=== PATIENT | male | born 1970 | race Caucasian/White ===

== ENCOUNTER 2018-02-10 02:01 | Emergency (ER) | payer BC | END 2018-02-10 03:19 | disposition home or self-care (01) | LOC: MADERS 02:01 → EDBD 02:01 → MADERS 03:19 | DX: I10 Essential (primary) hypertension (principal); M79.1 Myalgia; E78.5 Hyperlipidemia, unspecified; Z79.899 Other long term (current) drug therapy | CPT/HCPCS: 99283 ==

== ENCOUNTER 2019-04-09 19:11 | Emergency (ER) | payer BC ==
[2019-04-09 20:02] LABS: #Basophils 0.2 thou/uL (0.0-0.2); #Eosinphils 0.3 thou/uL (0.0-0.7); #Lymphocytes 2.9 thou/uL (1.20-3.40); #Monocytes 0.9 thou/uL (0.11-0.59); #Neutrophils 5.7 thou/uL (1.40-6.50); %Basophils 1.7 % (0.0-1.0); %Eosinophils 2.6 % (0.0-10.0); %Lymphocytes 29.3 % (21.0-51.0); %Monocytes 9.4 % (0.0-10.0); %Neutrophils 56.9 % (42.0-75.0); Hemoglobin 16.4 g/dL (14.0-18.0); Mean Corpuscular HGB CONC 34.9 g/dL (32.0-36.0); Mean Corpuscular Hemoglobin 29.3 pg (27.0-31.0); Mean Corpuscular Volume 84.1 fL (78.0-98.0); Mean Platelet Volume 6.9 fL (7.4-10.4); Platelet Count 246 thou/uL (130-400); Red Blood Cell (RBC) Count 5.57 mill/uL (4.70-6.10)
[2019-04-09 20:19] LABS: ALT (SGPT) 38 U/L (8-55); AST (SGOT) 23 U/L (5-34); Albumin 4.5 g/dL (3.5-5.0); Alkaline Phosphatase 70 U/L (40-150); Anion Gap 17 mmol/L (10-20); BUN (Urea Nitrogen) 13 mg/dL (8.9-20.6); Bilirubin, Total 0.4 mg/dL (0.2-1.2); Calc. Creatinine Clearance 0 mL/min (70-130); Calcium 9.8 mg/dL (7.8-10.44); Carbon Dioxide 25 mmol/L (22-29); Chloride 100 mmol/L (98-107); Estimated GFR-MDRD 62; Globulin 3.6 g/dL (2.4-3.5); Glucose 132 mg/dL (70-105); Protein, Total 8.1 g/dL (6.0-8.3); Sodium 138 mmol/L (136-145)
--- NOTE | 2019-04-09 20:33 | RAD ---
PORTABLE CHEST 1 VIEW: Date: 04/09/19 Time: 0820 hours HISTORY: Dizziness. Nausea. Shortness of breath. FINDINGS: The heart size is normal. No lobar consolidation, pneumothoraces, or pleural effusions are seen. IMPRESSION: No acute process. POS: [facility]
--- NOTE | 2019-04-09 20:33 | CT ---
CT BRAIN WITHOUT CONTRAST: Date: 04/09/19 HISTORY: Dizziness. Nausea. FINDINGS: There are no previous exams for comparison. No evidence of acute infarct, hemorrhage, midline shift, or abnormal extra-axial fluid collections ar e seen. The ventricular size is normal and the basilar cisterns are patent. The bony calvarium is int act. The visualized paranasal sinuses and mastoid air cells are well aerated. IMPRESSION: No CT evidence of acute intracranial process. POS: [facility]
== END 2019-04-09 21:13 | disposition home or self-care (01) ==
LOC: MADERS 19:11
DX: R42 Dizziness and giddiness (principal); I10 Essential (primary) hypertension; E78.5 Hyperlipidemia, unspecified; F17.220 Nicotine dependence, chewing tobacco, uncomplicated; Z79.82 Long term (current) use of aspirin; Z79.899 Other long term (current) drug therapy
CPT/HCPCS: 36415; 70450; 71045; 80053; 83880; 84484; 85025; 93005

== ENCOUNTER 2019-08-08 08:38 | Emergency (ER) | payer BC ==
[2019-08-08] MEDS ORDERED: diphenhydrAMINE 25 MG CAP ONE (09:47)
[2019-08-08] MEDS ORDERED: predniSONE 10 MG TAB ONE ×2 (09:47)
== END 2019-08-08 09:56 | disposition home or self-care (01) ==
LOC: MADERS 08:38
DX: L27.0 Generalized skin eruption due to drugs and medicaments taken internally (principal); T50.905A Adverse effect of unspecified drugs, medicaments and biological substances, initial encounter; E11.9 Type 2 diabetes mellitus without complications; I10 Essential (primary) hypertension; E78.5 Hyperlipidemia, unspecified; F17.220 Nicotine dependence, chewing tobacco, uncomplicated; Z79.82 Long term (current) use of aspirin; Z79.899 Other long term (current) drug therapy
CPT/HCPCS: 99282; J7512; Q0163

== ENCOUNTER 2020-02-16 15:51 | Emergency (ER) | payer BC ==
[2020-02-16] MEDS ORDERED: Sodium Chloride 0.9% 1,000 ML ONE (16:07)
[2020-02-16 16:38] LABS: Bilirubin Negative (Negative); Blood, Urine Negative (Negative); Clarity Clear (Clear); Glucose, Urine (Dipstick) Negative (Negative); Ketone, Urine Negative (Negative); Leukocyte Negative (Negative); Nitrite Negative (Negative); Protein, Urine (Dipstick) Negative (Neg-Trace); Specific Gravity, Urine 1.015 (1.005-1.030); Urobilinogen 0.2 mg/dL (Less than 2)
[2020-02-16 16:42] LABS: #Basophils 0.1 thou/uL (0.0-0.2); #Eosinphils 0.2 thou/uL (0.0-0.7); #Monocytes 1.1 thou/uL (0.11-0.59); #Neutrophils 8.1 thou/uL (1.40-6.50); %Basophils 1.2 % (0.0-1.0); %Eosinophils 1.4 % (0.0-10.0); %Lymphocytes 17.4 % (21.0-51.0); %Monocytes 9.3 % (0.0-10.0); %Neutrophils 70.6 % (42.0-75.0); Mean Corpuscular HGB CONC 31.5 g/dL (32.0-36.0); Mean Corpuscular Hemoglobin 27.1 pg (27.0-31.0); Mean Corpuscular Volume 86.2 fL (78.0-98.0); Mean Platelet Volume 7.5 fL (7.4-10.4); Platelet Count 302 thou/uL (130-400); RBC Distribution Width 11.9 % (11.5-14.5); Red Blood Cell (RBC) Count 5.91 mill/uL (4.70-6.10); White Blood Cell (WBC) Count 11.5 thou/uL (4.8-10.8)
[2020-02-16 16:56] LABS: ALT (SGPT) 24 U/L (8-55); AST (SGOT) 18 U/L (5-34); Albumin 4.3 g/dL (3.5-5.0); Alkaline Phosphatase 75 U/L (40-110); Anion Gap 14 mmol/L (10-20); BUN (Urea Nitrogen) 15 mg/dL (8.9-20.6); Bilirubin, Total 0.4 mg/dL (0.2-1.2); CK (CPK) 52 U/L (30-200); Calc. Creatinine Clearance 0 mL/min (70-130); Carbon Dioxide 23 mmol/L (22-29); Chloride 106 mmol/L (98-107); Estimated GFR-MDRD 72; Globulin 3.2 g/dL (2.4-3.5); Glucose 93 mg/dL (70-105); Protein, Total 7.5 g/dL (6.0-8.3); Sodium 139 mmol/L (136-145)
[2020-02-16] MEDS ORDERED: Ondansetron PF 4 MG/2 ML Vial ONE (17:19)
== END 2020-02-16 18:07 | disposition home or self-care (01) ==
LOC: MADERS 15:51
DX: R42 Dizziness and giddiness (principal); R11.0 Nausea; E78.5 Hyperlipidemia, unspecified; I10 Essential (primary) hypertension; F32.9 Major depressive disorder, single episode, unspecified; F17.220 Nicotine dependence, chewing tobacco, uncomplicated; Z79.82 Long term (current) use of aspirin; Z79.899 Other long term (current) drug therapy
CPT/HCPCS: 36415; 80053; 81003; 82550; 84484; 85025; 85379; 93005; 94760; 96361; 96374; J2405; J7050

== ENCOUNTER 2020-03-01 12:49 | Emergency (ER) | payer BC | END 2020-03-01 14:04 | disposition home or self-care (01) | LOC: MADERS 12:49 | DX: F41.0 Panic disorder [episodic paroxysmal anxiety] (principal); I10 Essential (primary) hypertension; R73.03 Prediabetes; F41.9 Anxiety disorder, unspecified; F32.9 Major depressive disorder, single episode, unspecified; F17.220 Nicotine dependence, chewing tobacco, uncomplicated; Z79.82 Long term (current) use of aspirin; Z79.899 Other long term (current) drug therapy | CPT/HCPCS: 99283 ==

== ENCOUNTER 2020-07-18 18:35 | Emergency (ER) | payer BC ==
[2020-07-19 19:59] LABS: SARS-CoV-2 MS2 Negative; SARS-CoV-2 N Gene Positive; SARS-CoV-2 S Gene Positive; SARS-CoV-2 by NAA DETECTED (NotDetected); SARS-CoV-2 orf1ab Positive
== END 2020-07-18 19:37 | disposition home or self-care (01) ==
LOC: MADERS 18:35
DX: U07.1 COVID-19 (principal); I10 Essential (primary) hypertension; R73.03 Prediabetes; E78.5 Hyperlipidemia, unspecified; Z71.6 Tobacco abuse counseling; Z79.82 Long term (current) use of aspirin; Z79.899 Other long term (current) drug therapy
CPT/HCPCS: 87635; 99406; U0003

== ENCOUNTER 2023-06-15 20:57 | Emergency (ER) | payer BC ==
[2023-06-15] MEDS ORDERED: Bisacodyl 10 MG SUPP ONE (21:27)
== END 2023-06-15 22:40 | disposition home or self-care (01) ==
LOC: MADERS 20:57
DX: K59.00 Constipation, unspecified (principal); I10 Essential (primary) hypertension; F17.220 Nicotine dependence, chewing tobacco, uncomplicated; Z79.82 Long term (current) use of aspirin; Z79.899 Other long term (current) drug therapy
CPT/HCPCS: 99283

== ENCOUNTER 2023-09-01 07:47 | Emergency (ER) | payer BC ==
[2023-09-01] MEDS ORDERED: Mag-Al Plus 1200/1200/120 MG (30 mL) UDCUP ONE (08:29)
[2023-09-01] MEDS ORDERED: Lidocaine 2% Viscous 100 ML BOTTLE ONE (08:30)
[2023-09-01] MEDS ORDERED: Sodium Chloride 0.9% 1,000 ML ONE (08:30)
[2023-09-01 08:32] LABS: Bilirubin Negative (Negative); Blood, Urine Trace (Negative); Clarity Clear (Clear); Glucose, Urine (Dipstick) Negative (Negative); Ketone, Urine Negative (Negative); Leukocyte Negative (Negative); Nitrite Negative (Negative); Protein, Urine (Dipstick) Negative (Neg-Trace); Specific Gravity, Urine 1.015 (1.005-1.030); Urobilinogen 0.2 mg/dL (Less than 2)
[2023-09-01 08:37] LABS: #Eosinphils 0.1 thou/uL (0.0-0.7); #Lymphocytes 0.3 thou/uL (1.20-3.40); #Monocytes 0.5 thou/uL (0.11-0.59); #Neutrophils 11.2 thou/uL (1.40-6.50); %Basophils 0.3 % (0.0-1.0); %Eosinophils 0.5 % (0.0-10.0); %Lymphocytes 2.5 % (21.0-51.0); %Monocytes 3.9 % (0.0-10.0); %Neutrophils 92.8 % (42.0-75.0); Hematocrit 47.2 % (42.0-52.0); Hemoglobin 15.4 g/dL (14.0-18.0); Mean Corpuscular HGB CONC 32.6 g/dL (32.0-36.0); Mean Corpuscular Hemoglobin 28.7 pg (27.0-31.0); Mean Corpuscular Volume 88.1 fl (78.0-98.0); Mean Platelet Volume 8.4 fL (7.4-10.4); Platelet Count 195 10x3/uL (130-400); RBC Distribution Width 12.1 % (11.5-14.5); Red Blood Cell (RBC) Count 5.35 mill/uL (4.70-6.10); White Blood Cell (WBC) Count 12.1 10x3/uL (4.8-10.8)
[2023-09-01 08:40] LABS: Bacteria/HPF Rare-Few HPF (None Seen); CAUTI Indications for Culture Pelvic or flank pain; RBC/HPF 0-3 HPF (0-3); Squamous Epithelial 0-3 HPF (0-3); WBC/HPF 0-3 HPF (0-3)
[2023-09-01 08:42] LABS: Urine Culture Reflex No No
[2023-09-01 08:47] LABS: ALT (SGPT) 115 U/L (8-55); AST (SGOT) 106 U/L (5-34); Albumin 4.1 g/dL (3.5-5.0); Alkaline Phosphatase 75 U/L (40-110); Anion Gap 13 mmol/L (10-20); BUN (Urea Nitrogen) 17 mg/dL (8.4-25.7); Bilirubin, Total 0.9 mg/dL (0.2-1.2); Calc. Creatinine Clearance 0 mL/min (70-130); Calcium 8.9 mg/dL (7.8-10.44); Carbon Dioxide 23 mmol/L (22-29); Chloride 104 mmol/L (98-107); Estimated GFR 70; Globulin 2.8 g/dL (2.4-3.5); Glucose 111 mg/dL (70-105); Lipase 65 U/L (8-78); Potassium 5.3 mmol/L (3.5-5.1); Protein, Total 6.9 g/dL (6.0-8.3); Sodium 135 mmol/L (136-145)
[2023-09-01 08:50] LABS: Troponin I Less than 0.010 ng/mL (< 0.028)
== END 2023-09-01 09:53 | disposition home or self-care (01) ==
LOC: MADERS 07:47
DX: K29.00 Acute gastritis without bleeding (principal); I10 Essential (primary) hypertension; Z79.82 Long term (current) use of aspirin; Z79.899 Other long term (current) drug therapy
CPT/HCPCS: 80053; 81001; 83690; 84484; 85025; 93005; 94760; 96360; J7050

== ENCOUNTER 2024-04-17 11:13 | Outpatient (CLI) | payer BC | END 2024-04-17 11:14 | disposition home or self-care (01) | LOC: MADRAD 11:13 | PROVIDERS: ATTEND Physician Assistant | DX: R20.2 Paresthesia of skin (principal); M47.812 Spondylosis without myelopathy or radiculopathy, cervical region; M47.814 Spondylosis without myelopathy or radiculopathy, thoracic region; M47.816 Spondylosis without myelopathy or radiculopathy, lumbar region | CPT/HCPCS: 72040; 72072; 72100 ==

== ENCOUNTER 2024-05-26 18:30 | Emergency (ER) | payer BC ==
[2024-05-26] MEDS ORDERED: Tetracaine 0.5% PF 4 ML BOT ONE (18:54)
[2024-05-26] MEDS ORDERED: Fluorescein Opthalmic Strip ONE (18:54)
== END 2024-05-26 19:25 | disposition home or self-care (01) ==
LOC: MADERS 18:30
DX: H57.89 Other specified disorders of eye and adnexa (principal); I10 Essential (primary) hypertension; F17.220 Nicotine dependence, chewing tobacco, uncomplicated; Z79.899 Other long term (current) drug therapy
CPT/HCPCS: 99283

== ENCOUNTER 2024-08-30 14:39 | Outpatient (CLI) | payer OTHER | END 2024-08-30 14:40 | disposition home or self-care (01) | LOC: MADRAD 14:39 | PROVIDERS: ATTEND Physician Assistant | DX: J18.9 Pneumonia, unspecified organism (principal) | CPT/HCPCS: 71046 ==

== ENCOUNTER 2025-04-19 07:54 | Outpatient (CLI) | payer BC, OTHER ==
[2025-04-19 08:31] LABS: #Basophils 0.1 thou/uL (0.0-0.2); #Eosinophils 0.2 thou/uL (0.0-0.7); #Lymphocytes 2.5 thou/uL (1.20-3.40); #Monocytes 0.8 thou/uL (0.11-0.59); #Neutrophils 4.4 thou/uL (1.40-6.50); %Basophils 1.6 % (0.0-1.0); %Eosinophils 2.6 % (0.0-10.0); %Lymphocytes 31.3 % (21.0-51.0); %Monocytes 9.9 % (0.0-10.0); %Neutrophils 54.6 % (42.0-75.0); Hematocrit 52.9 % (42.0-52.0); Hemoglobin 17.3 g/dL (14.0-18.0); Mean Corpuscular Hemoglobin 28.4 pg (27.0-31.0); Mean Corpuscular Volume 86.7 fl (78.0-98.0); Platelet Count 264 10x3/uL (130-400); Red Blood Cell (RBC) Count 6.10 mill/uL (4.70-6.10); White Blood Cell (WBC) Count 8.1 10x3/uL (4.8-10.8)
[2025-04-19 08:50] LABS: ALT (SGPT) 28 U/L (Less than 45); AST (SGOT) 25 U/L (11-34); Albumin 4.8 g/dL (3.1-4.5); Alkaline Phosphatase 66 U/L (40-110); Anion Gap 14 mmol/L (10-20); BUN (Urea Nitrogen) 16 mg/dL (8.4-25.7); Bilirubin, Total 0.7 mg/dL (0.3-1.2); Calc. Creatinine Clearance 0 mL/min (70-130); Calcium 9.6 mg/dL (7.8-10.44); Carbon Dioxide 25 mmol/L (22-29); Cardiac Risk 6.4 (Less than 4.5); Chloride 103 mmol/L (98-107); Cholesterol 230 mg/dl (< 200 Desired); Globulin 3.5 g/dL (2.4-3.5); Glucose 114 mg/dL (70-105); HDL Cholesterol 36 mg/dL (>60 Neg Risk); LDL Cholesterol, Calculated 157 mg/dL; Potassium 4.4 mmol/L (3.5-5.1); Sodium 138 mmol/L (136-145); Triglycerides 186 mg/dL (Less than 150)
[2025-04-19 16:34] LABS: Albumin (w/Testosterone Panel) 4.7 g/dL
[2025-04-19 16:53] LABS: Testosterone, Free 98.0 pg/mL (47-244)
[2025-04-19 16:55] LABS: Free T4 (Free Thyroxine) 1.02 ng/dL (0.70-1.48)
[2025-04-19 17:18] LABS: PSA-Asymptomatic (SCREENING) 1.068 ng/mL (0-4.0)
== END 2025-04-19 07:55 | disposition home or self-care (01) ==
LOC: MADLAB 07:54
PROVIDERS: ATTEND Physician Assistant Medical
DX: E29.1 Testicular hypofunction (principal); K59.00 Constipation, unspecified; N40.0 Benign prostatic hyperplasia without lower urinary tract symptoms; R53.83 Other fatigue
CPT/HCPCS: 36415; 80053; 80061; 82670; 83036; 84270; 84403; 84439; 84443; 84481; 85025; 86900; 86901; G0103